=== PATIENT | female | born 2000 | race African-American/Black ===

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

== ENCOUNTER 2020-01-11 19:44 | Emergency (ER) | payer MEDICAID ==
[~2020-01-11] VITALS: Ht 165.1 cm; Wt 65.6 kg
[2020-01-11 20:28] VITALS: BP 122/82
== END 2020-01-12 00:33 | disposition left against medical advice (07) ==
LOC: ER 19:44
DX: R06.02 Shortness of breath (principal); Z53.21 Procedure and treatment not carried out due to patient leaving prior to being seen by health care provider